=== PATIENT | male | born 1985 | race African-American/Black ===

== ENCOUNTER 2024-08-25 15:17 | Emergency (ER) | payer SELFPAY ==
[~2024-08-25] VITALS: Ht 182.9 cm; Wt 122.7 kg
[2024-08-25 15:20] VITALS: TEMP 36.7; O2SAT 98
[2024-08-25] MEDS ORDERED: IBUP-2029 MT (17:49)
[2024-08-25] MEDS: IBUPROFEN 600MG TABLET PO ONE (18:12)
[2024-08-25 18:17] VITALS: BP 125/73; PULSE 74; RESP 16; O2SAT 100
== END 2024-08-25 18:15 | disposition home or self-care (01) ==
LOC: ER 15:17
DX: S93.692A Other sprain of left foot, initial encounter (principal); Z79.899 Other long term (current) drug therapy; X58.XXXA Exposure to other specified factors, initial encounter; Y93.89 Activity, other specified; Y92.89 Other specified places as the place of occurrence of the external cause; Y99.8 Other external cause status
CPT/HCPCS: 29515; 73630; 99283